=== PATIENT | female | born 1990 | race Asian ===

== ENCOUNTER → 2017-12-03 | Outpatient (CLI) | END | disposition home or self-care (01) ==

== ENCOUNTER → 2019-01-27 | Outpatient (CLI) | payer BC | END | disposition home or self-care (01) | LOC: LAB 08:10 | PROVIDERS: ATTEND Obstetrics & Gynecology | DX: Z32.00 Encounter for pregnancy test, result unknown (principal) | CPT/HCPCS: 81003; 84443; 85025; 86592; 86703; 86762; 86803; 86850; 86900; 86901; 87340 ==